=== PATIENT | female | born 1970 | race Caucasian/White ===

== ENCOUNTER → 2016-12-06 | Outpatient (CLI) | payer OTHER ==
[2016-12-09 08:06] LABS: F001-IGE EGG WHITE <0.10 kU/L (Class 0); F004-IGE WHEAT <0.10 kU/L (Class 0); F008-IGE CORN <0.10 kU/L (Class 0); F009-IGE RICE <0.10 kU/L (Class 0); F013-IGE PEANUT <0.10 kU/L (Class 0); F014-IGE SOYBEAN <0.10 kU/L (Class 0); F256-IGE WALNUT <0.10 kU/L (Class 0)
== END ==
LOC: M LAB 09:42
PROVIDERS: ATTEND Allergy & Immunology
DX: Z91.018 Allergy to other foods (principal)

== ENCOUNTER → 2016-12-14 | Outpatient (REF) | payer OTHER | LOC: M LAB REF 16:44 | PROVIDERS: ATTEND Specialist | DX: R87.610 Atypical squamous cells of undetermined significance on cytologic smear of cervix (ASC-US) (principal); R87.612 Low grade squamous intraepithelial lesion on cytologic smear of cervix (LGSIL) ==

== ENCOUNTER 2017-08-23 09:03 | Day surgery (SDC) | payer OTHER ==
[2017-08-23] MEDS: NS 1,000 ML IV (09:26)
[2017-08-23] MEDS ORDERED: fentaNYL 100 MCG/2 ML INJECTION (J3010) As Ordered (09:37)
[2017-08-23] MEDS ORDERED: PROPOFOL 500 MG/50 ML VIAL As Ordered (09:37)
[2017-08-23] MEDS ORDERED: LIDOCAINE 2% INJ 100 MG/5 ML SDV (FOR ANES.) As Ordered (10:18)
== END 2017-08-23 11:32 | disposition home or self-care (01) ==
LOC: M OPP 09:03
DX: K62.5 Hemorrhage of anus and rectum (principal); R19.4 Change in bowel habit; D12.5 Benign neoplasm of sigmoid colon; K64.0 First degree hemorrhoids; R13.10 Dysphagia, unspecified; R12 Heartburn; K29.70 Gastritis, unspecified, without bleeding; R11.2 Nausea with vomiting, unspecified; K21.9 Gastro-esophageal reflux disease without esophagitis; F41.9 Anxiety disorder, unspecified; F32.9 Major depressive disorder, single episode, unspecified; N83.202 Unspecified ovarian cyst, left side; Z88.0 Allergy status to penicillin; Z91.018 Allergy to other foods; Z88.8 Allergy status to other drugs, medicaments and biological substances; Z88.3 Allergy status to other anti-infective agents; Z91.040 Latex allergy status; Z91.013 Allergy to seafood; Z79.899 Other long term (current) drug therapy; Z80.3 Family history of malignant neoplasm of breast; Z80.41 Family history of malignant neoplasm of ovary
CPT/HCPCS: 45385

== ENCOUNTER → 2017-08-27 | Outpatient (REF) | payer OTHER ==
[2017-08-29 14:11] LABS: HPV HYBRID CAPTURE II Negative (Negative)
== END ==
LOC: M LAB REF 17:56
DX: N87.0 Mild cervical dysplasia (principal)

== ENCOUNTER → 2018-10-07 | Outpatient (REF) | payer OTHER ==
[~2018-10-07] MED LIST: FLON1SPR
[2018-10-10 14:22] LABS: HPV HYBRID CAPTURE II Negative (Negative)
== END ==
LOC: M LAB REF 17:48
PROVIDERS: ATTEND Specialist
DX: Z12.4 Encounter for screening for malignant neoplasm of cervix (principal); Z11.51 Encounter for screening for human papillomavirus (HPV)
CPT/HCPCS: 87624; G0123

== ENCOUNTER 2018-11-21 12:40 | Day surgery (SDC) | payer OTHER ==
[~2018-11-21] VITALS: Ht 157.5 cm; Wt 61.2 kg
[~2018-11-21 12:40] MED LIST changes: +BUSP10TA PO; +CETI10TA PO; +LR 1,000 ML IV ONE; +OMEP20TA PO; +PROZ20CA11 PO
[2018-11-21 13:09] LABS: URINE PREG TEST NEGATIVE (NEGATIVE)
[2018-11-21 13:10] LABS: HEMOGLOBIN 13.2 g/dl (12.0-15.5); MEAN CORPUSCULAR HEMOGLOBIN 29.6 pg (27.0-33.0); MEAN CORPUSCULAR VOLUME 89.7 fl (80.0-96.0); PLATELET COUNT, AUTOMATED 190 10^3/uL (150-450); RED BLOOD COUNT 4.46 10^6/uL (4.00-5.40); WHITE BLOOD COUNT 5.3 10^3/uL (4.0-10.0)
[2018-11-21] MEDS ORDERED: BUPIVACAINE HCL 0.25% 30 ML VIAL As Ordered ONE (13:28)
[2018-11-21] MEDS ORDERED: ADVITAB PO (13:50)
[2018-11-21] MEDS ORDERED: PX N0.05 (13:50)
[2018-11-21] MEDS ORDERED: LIDOCAINE 2% INJ 100 MG/5 ML SDV (FOR ANES.) As Ordered ONE (14:24)
[2018-11-21] MEDS ORDERED: ROCURONIUM BROMIDE 50 MG/5 ML VIAL As Ordered ONE (14:24)
[2018-11-21] MEDS ORDERED: PROPOFOL 200 MG/20 ML VIAL As Ordered ONE (14:24)
[2018-11-21] MEDS ORDERED: dexameTHASONE 4 MG/ML 1ML VIAL (J1100) As Ordered ONE (14:25)
[2018-11-21] MEDS ORDERED: ONDANSETRON 4MG/2ML VIAL (J2405) As Ordered ONE (14:25)
[2018-11-21] MEDS ORDERED: MIDAZOLAM INJ 2 MG/2 ML VIAL (J2250) As Ordered ONE (14:29)
[2018-11-21] MEDS ORDERED: fentaNYL 100 MCG/2 ML INJECTION (J3010) As Ordered ONE ×2 (14:29→17:23)
[2018-11-21] MEDS ORDERED: METOCLOPRAMIDE INJ 10MG/2ML VIAL (J2765) As Ordered ONE (15:56)
[2018-11-21] MEDS ORDERED: OXYC1TAB23 PO (15:58)
[2018-11-21] MEDS ORDERED: IBUP-1022 PO ×2 (15:59→18:59)
[2018-11-21] MEDS ORDERED: SUGAMMADEX SODIUM 500 MG/5 ML VIAL (BRIDION) As Ordered ONE (16:27)
[2018-11-21] MEDS ORDERED: KETOROLAC 60 MG/2 ML VIAL (J1885) As Ordered ONE (16:27)
[2018-11-21] MEDS ORDERED: fentaNYL 100 MCG/2 ML INJECTION (J3010) IV PRN (17:30)
[2018-11-21] MEDS ORDERED: ONDANSETRON 4MG/2ML VIAL (J2405) IV PRN (17:30)
[2018-11-21] MEDS ORDERED: LR 1,000 ML IV SCH ×2 (17:30)
[2018-11-21] MEDS ORDERED: PERCOCET 5MG/325MG TAB PO PRN ×2 (17:30)
[2018-11-21] MEDS ORDERED: PERCOCET PO (18:59)
[2018-11-21 19:00] VITALS: BP 123/76
--- NOTE | 2018-11-21 19:01 | IPNPDOC ---
Text Note Date of Service The patient was seen on 11/21/18. NOTE TC from Dr Fenton. Pt requested pharmacy change. New Rx [facility] Laboratory Tests 11/21/18 12:56 Red Blood Count 4.46, Mean Corpuscular Volume 89.7, Mean Corpuscular Hemoglobin 29.6, Mean Corpuscular Hemoglobin Concent 33.0, Red Cell Distribution Width 12.2 Vital Signs Date Time Temp Pulse Resp B/P (MAP) Pulse Ox O2 Delivery O2 Flow Rate FiO2 11/21/18 17:50 76 18 135/78 (97) 98 11/21/18 17:40 96.7 11/21/18 17:10 2 Shira Perez CNM Nov 21, 2018 19:00
--- NOTE | 2018-11-21 20:48 | RO ---
DATE OF PROCEDURE: 11/21/2018 PREPROCEDURE DIAGNOSIS: Left ovarian cyst. POSTPROCEDURE DIAGNOSIS: Left ovarian cyst. OPERATIVE PROCEDURE: Laparoscopic left salpingo-oophorectomy. SURGEON: Vishnu Fenton MD TOURIST CAMP ATTENDANT: ANESTHESIA: General endotracheal. ESTIMATED BLOOD LOSS: 20 mL URINE OUTPUT: 100 mL FINDINGS: 6 cm probable left ovarian cyst adenoma. Normal appearing right ovary and fallopian tube. Normal appearing uterus. DESCRIPTION OF PROCEDURE: The patient was taken to the operating room where general endotracheal anesthesia was induced. She was prepped and draped in a sterile fashion in the dorsal lithotomy position. A Ny catheter was placed. A Hulka uterine tenaculum was placed to use as a manipulator. Periumbilical incision was made with a scalpel. A Veress needle was placed through this incision while tenting up on the skin of the abdomen. Intraabdominal location of the Veress needle was assessed using a saline filled syringe. A pneumoperitoneum was created. The Veress needle was removed. A 11 mm trocar using Visiport was inserted through this incision. Two 5 mm suprapubic ports were placed under direct visualization. Using a grasping instrument and a LigaSure device the IP ligament on the left was coagulated and incised. Broad ligament attachments to the ovary were coagulated and incised. Utero-ovarian ligament and fallopian tube were coagulated and incised. The specimen was freed. The specimen was placed in an Endo Catch bag and removed through the umbilical port. Surgical area was irrigated and suctioned with good hemostasis noted. An incidental adhesion to the anterior abdominal wall of the omentum near the uterus was taken down with the use of the LigaSure. The pneumoperitoneum was released. All instruments were removed. The fascia of the umbilical port was closed with interrupted suture of #0 Vicryl. The skin was closed with #4-0 Monocryl subcuticular sutures. Sponge, needle and instrument counts were correct.
== END 2018-11-21 19:00 | disposition home or self-care (01) ==
LOC: M SDC 12:40
PROVIDERS: ATTEND Specialist
DX: D27.1 Benign neoplasm of left ovary (principal); K21.9 Gastro-esophageal reflux disease without esophagitis; F41.9 Anxiety disorder, unspecified; F32.9 Major depressive disorder, single episode, unspecified; Z87.891 Personal history of nicotine dependence; Z88.0 Allergy status to penicillin; Z91.040 Latex allergy status; Z91.013 Allergy to seafood; Z79.899 Other long term (current) drug therapy
CPT/HCPCS: 36415; 58661; 84703; 85027; 88305; J1100; J1885; J2250; J2405; J2765; J3010

== ENCOUNTER → 2021-02-19 | Outpatient (CLI) | payer OTHER ==
[~2021-02-19] MED LIST changes: +ADVITAB PO; +IBUP-1022 PO; -LR 1,000 ML IV ONE; +OMEP-358 PO; -OMEP20TA PO; +OXYC1TAB23 PO; +PERCOCET PO; +PX N0.05
--- NOTE | 2021-02-20 16:08 | SLEEPCENT ---
NOCTURNAL POLYSOMNOGRAPHY DATE: 02/19/2021 ORDERED BY: CHAPARRITA Scott Nocturnal polysomnography was performed for evaluation of sleep physiology in this patient with nonrestorative sleep and reported excessive somnolence. 8 hours and 45 minutes of data were reviewed. There were 368 minutes of sleep identified. Sleep latency was mildly prolonged at 31.5 minutes. REM latency also prolonged at 231 minutes. Sleep architecture was good. There were four REM cycles noted. Overall sleep efficiency was 70.8%. The electrocardiogram showed a sinus rhythm throughout with an average heart rate of 60 beats per minute; rate range 40 to 80. EEG showed normal waveforms for wake and sleep stages. There were no respiratory events identified of 10 seconds in duration or greater and no snoring was noted. Some activity was noted in the limb leads. One train of 30 events and a limb movement arousal index of 3.9. IMPRESSION: Normal nocturnal polysomnography.
== END ==
LOC: M SLEEP 20:00
PROVIDERS: ATTEND Nurse Practitioner Family
DX: G47.33 Obstructive sleep apnea (adult) (pediatric) (principal)

== ENCOUNTER 2021-06-29 16:38 | Emergency (ER) | payer OTHER ==
[~2021-06-29] VITALS: Ht 157.5 cm; Wt 65.1 kg
[2021-06-29] MEDS ORDERED: NS 1,000 ML IV ONE (16:40)
--- OUTSIDE RECORDS SUMMARY | 2021-06-29 16:41 | CCD | Continuity of Care Document ---
Author Author Angelika BOWLES M.D Organization Unknown Address [address] [place] [address] Phone [phone] Care Team Providers Care Printing Manager Name Role Phone Skinny James AUTM Problems Active Problems Provider Date Abdominal pain Umesh Bowles M.D. Onset: 04/25/20 21 Dysphagia Umesh Bowles M.D. Onset: 07/12/20 17 Social History Type Date Description Comments Sex Unknown ETOH Use Occasionally Tobacco Use Start: Unknown Patient has never smoked Allergies and adverse reactions Active Allergies Criticality Reaction | Severity Comments Date Seasonal Allergies Unable to assess criticality 07/12/2017 Food Allergies Unable to assess criticality 07/12/2017 Medications Active Medications SIG Qnty Indications Ordering Provide r Date Metamucil Smooth Texture 58.6% Pow flavia 1 tablespoon in 8 ozs of water everyday. 1unyoung Bowles M.D. 05/11/2021 Miralax 17GM/Scoop Powder mix one capful (17gm) in 8 ounces of water and drink once daily 527unyoung Bowles M.D. 04/25/2021 Hyoscyamine Sulfate 0.125mg Tablets Dispers 1 tab by mouth every 6 hours as needed 100tabs Omega Bowles M.D. 04/25/2021 Omeprazole 20mg Capsules Marito Cardozo,DO Rizatriptan Benzoate 10mg Tablets Unknown Cetirizine HCL 10mg Tablets Unknown Immunizations Description No Information Available Vital Signs Date Vital Result Comment 05/11/2021 2:48pm Height 62 inches 5'2" Weight 136.00 lb BP Systolic 124 mmHg BP Diastolic 73 mmHg Heart Rate 66 /min BMI (Body Mass Index) 24.9 kg/m2 Weight 61.690 kg Body Temperature 97.5 F 04/25/2021 2:37pm Height 62 inches 5'2" Weight 136.00 lb BP Systolic 128 mmHg BP Diastolic 80 mmHg Heart Rate 76 /min BMI (Body Mass Index) 24.9 kg/m2 Weight 61.690 kg Body Temperature 97.4 F Results Description No Information Available Procedures Date Code Description Status 05/11/2021 73517 Office/Outpatient Established Lo w MDM 20-29 Min Completed 04/25/2021 17642 Office/Outpatient Established Lo w MDM 20-29 Min Completed Medical Devices Description No Information Available Encounters Type Date Location Provider Dx Diagnosis Office Visit 05/11/2021 4:00p Main Office Umesh Bowles M.D. K 58.1 Irritable bowel syndrome with constipation Office Visit 04/25/2021 2:30p Main Office Umesh Bowles M.D. K 58.1 Irritable bowel syndrome with constipation Assessments Date Code Description Provider 05/11/2021 K58.1 Irritable bowel syndrome with co nstipation Umesh Bowles M.D. 04/25/2021 K58.1 Irritable bowel syndrome with co nstipation Umesh Bowles M.D. Plan of Treatment Future Appointment(s):* 06/22/2021 3:45 pm - Umesh Bowles M.D. at Main Office 05/11/2021 - Umesh Bowles M.D.* K58.1 Irritable bowel syndrome with constipation* Comments:* 50 yo wf who presented for a h/o abdominal pain, lower abdomen. Pt has irregular bowels. No c/o weight loss,or rectal bleeding. No family h/o colon cancer. No h/o chest pain, or sob. Last scope was in 2018. Plan:1. Stop Miralax2. Start Metamucil3. Office 6 weeks. Functional Status Description No Information Available Mental Status Description No Information Available Referrals Refer to Dr Reason for Referral Status Appt Date Umesh Bowles M.D. Scheduled [phone] [place] [address] [phone]
--- OUTSIDE RECORDS SUMMARY | 2021-06-29 16:41 | CCD | Continuity of Care Document ---
Author Author Angelika BOWLES M.D Organization Unknown Address [address] [place] [address] Phone [phone] Care Team Providers Care Christmas Bell Ringer Name Role Phone Skinny James AUTM Problems [...] Available Procedures Date Code Description Status 05/11/2021 39977 Office/Outpatient Established Lo w MDM 20-29 Min Completed 04/25/2021 17516 Office/Outpatient Established Lo w MDM 20-29 Min [...] Status Appt Date Umesh Bowles M.D. Scheduled [phone] [place] [address] [phone]
--- OUTSIDE RECORDS SUMMARY | 2021-06-29 16:41 | CCD | Continuity of Care Document ---
Author Author Angelika BOWLES M.D Organization Unknown Address [address] [place] [address] Phone [phone] Care Team Providers Care Connection Worker Name Role Phone Skinny James AUTM [phone] Problems Active Problems Provider Date Abdominal pain [...] Available Procedures Date Code Description Status 05/11/2021 11076 Office/Outpatient Established Lo w MDM 20-29 Min Completed 04/25/2021 84819 Office/Outpatient Established Lo w MDM 20-29 Min [...] Status Appt Date Umesh Bowles M.D. Scheduled [phone] [place] [address] [phone]
--- OUTSIDE RECORDS SUMMARY | 2021-06-29 16:42 | CCD | Continuity of Care Document ---
Author Author Angelika FRANCIS DO Organization Unknown Address [address] [place] [address], [address] [place] [address] Phone [phone] Care Team Providers Care Pre Press Operator Name Role Phone Natasha Pierre AUTM [phone] Marito Gay MD Unavailable Problems Active Problems Provider Date H/O: food allergy Vishnu Francis, DO Onset: 07/10/2011 Allergic rhinitis due to pollen Vishnu Francis, DO Onset: 07/10/2011 Allergic rhinitis Vishnu Francis, DO Onset: 07/10/2011 Chronic sinusitis Vishnu Francis, DO Onset: 07/10/2011 Pruritus of skin Vishnu Francis, DO Onset: 07/10/2011 Urticaria due to cold and heat Vishnu Francis, DO Onset: 07/10/2011 Contact dermatitis due to non-medicinal chemical Mercedez Francis, DO Onset: 10/04/2011 Malaise and fatigue Vishnu Francis, DO Onset: 11/10/2012 Chronic allergic conjunctivitis Emmy Connor MShirley, MARLYS Gonzalez Onset: 12/21/2013 Urticaria Emmy Connor MShirley, MONICA Onset: Periumbilical pain Emmy Connor M.S., MONICA Onset: Diarrhea Emmy Connor M.S., MONICA Onset: Social History Type Date Description Comments Sex Unknown Tobacco Use Start: Unknown End: Unknown Patient is a former smoker QUIT in 2008 Smoking Status Reviewed: 04/26/21 Patient is a former smoker QU IT in 2008 Allergies, Adverse Reactions, Alerts Active Allergies Criticality Reaction | Severity Comments Date Amoxicillin Unable to assess criticality Urticaria | Moderat e amoxi-clav 875-125 07/10/2011 Wellbutrin Unable to assess criticality 12/21/2013 Augmentin Unable to assess criticality 12/06/2016 Medications Active Medications SIG Qnty Indications Ordering Provide r Date Saline Mist [place] 0.65% Solution use as needed. J30.1 Vishnu Francis, DO 04/26/2021 Olopatadine HCL 0.1% Solution use one drop in each eye twice daily as needed. 15ml H10.45 Wero Francis, DO 04/26/2021 Cetirizine HCL 10mg Tablets 1 -2 tablet by mouth every day 180tabs J30.1 Vishnu Francis, DO 12/06/2016 L50.3 L50.2 Epipen 2-Humphrey 0.3mg/0 .3ML Solution Auto-Inject inject into thigh for allergic emergency 1units Z91.018 Vishnu Francis, DO 12/21/2013 L50.2 Rizatriptan Benzoate 10mg Tablets prn for migraines Unknown Ibuprofen 600mg Tablets Take 1 Tablet By Mouth Four Times Daily as Needed Unknown Rizatriptan Benzoate 10mg Tablets Dispers Marito Gay MD Medications Administered in Office Medication SIG Qnty Indications Ordering Provider Date Covid-19 vaccine, Unspecified Inj ection Unknown 10/19/2020 Covid-19 vaccine, Unspecified Inj ection Unknown 09/29/2020 Immunizations Description No Information Available Vital Signs Date Vital Result Comment 04/26/2021 8:54am Respiratory Rate 16 /min Heart Rate 67 /min BP Systolic 104 mmHg left arm BP Diastolic 68 mmHg left arm Height 61.5 inches 5'1.50" Weight 135.00 lb Body Temperature 97.0 F O2 % BldC Oximetry 98 % BMI (Body Mass Index) 25.1 kg/m2 09/15/2020 1:52pm Respiratory Rate 15 /min Heart Rate 66 /min BP Systolic 100 mmHg left arm BP Diastolic 76 mmHg left arm Height 61.5 inches 5'1.50" Weight 123.25 lb Body Temperature 98.3 F O2 % BldC Oximetry 98 % BMI (Body Mass Index) 22.9 kg/m2 Results Description No Information Available Procedures Date Code Description Status 04/26/2021 43816 Office Visit - Level 4 Completed Medical Devices Description No Information Available Encounters Description No Information Available Assessments Date Code Description Provider 04/26/2021 L50.2 Urticaria due to cold and heat C Vishnu gallardo, 04/26/2021 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 Vishnu Torres v, 04/26/2021 J30.1 Allergic rhinitis due to pollen Vishnu Francis, DO 04/26/2021 J30.89 Other allergic rhinitis Vishnu Francis, DO 04/26/2021 H10.45 Other chronic allergic conjuncti vitis Vishnu Francis, 04/26/2021 Z91.018 Allergy to other foods Vishnu Francis, 04/26/2021 T49.6x5A Adverse effect of ot orhinolaryngological drugs and preparations, initial encounter Vishnu Francis DO Plan of Treatment Future Appointment(s):* 07/26/2021 9:00 am - Vishnu Francis DO at [facility] 04/26/2021 - Vishnu Francis DO* L50.2 Urticaria due to cold and heat * 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 * Comments:* Resume use of medications as needed. to use nasal saline as needed. * Follow up:* recheck in 3 mos. * J30.89 Other allergic rhinitis * H10.45 Other chronic allergic conjunctivitis* New Medication:* Olopatadine HCL 0.1 % - use one drop in each eye twice daily as needed. * Z91.018 Allergy to other foods * T49.6x5A Adverse effect of otorhinolaryngological drugs and preparations, initial encounter* Comments:* To use nasal saline. Functional Status Description No Information Available Mental Status Description No Information Available Referrals Refer to Reason for Referral Status Appt Date Vishnu Francis DO New/Est Consult Created [address] [place] [phone] Vishnu Francis DO Office Follow Ups Created [address] [place] [phone] Vishnu Francis DO Allergen Immunotherapy Created [address] [place] [phone]
--- OUTSIDE RECORDS SUMMARY | 2021-06-29 16:42 | CCD ---
Continuity of Care Document (CCD) Created on: 05/02/2021 Chicho Angelika External Reference #: [id number] : [id number] Sex: Female Author Author Angelika BOWLES M.D Organization Unknown Address [address] [place] [address] Phone [phone] Care Team Providers Care Oncology Research Rn Name Role Phone Skinny James AUTM [phone] Problems Active Problems Provider Date Abdominal pain [...] SIG Qnty Indications Ordering Provide r Date Miralax 17GM/Scoop Powder mix one capful (17gm) in 8 ounces of water and drink once daily 527units Umesh Bowles M.D. 04/25/2021 Hyoscyamine Sulfate 0.125mg Tablets Dispers 1 tab by mouth every 6 hours as needed 100tabs Omega Bowles M.D. 04/25/2021 Omeprazole 20mg Capsules Marito Cardozo,DO Rizatriptan Benzoate 10mg Tablets Unknown Cetirizine HCL 10mg Tablets Unknown Immunizations Description No Information Available Vital Signs Date Vital Result Comment 04/25/2021 2:37pm Height 62 inches 5'2" Weight 136.00 lb BP Systolic 128 mmHg BP Diastolic 80 mmHg Heart Rate 76 /min BMI (Body Mass Index) 24.9 kg/m2 Weight 61.690 kg Body Temperature 97.4 F 01/14/2020 3:39pm Height 62 inches 5'2" Temp 98. 4 Weight 139.00 lb BP Systolic 116 mmHg BP Diastolic 74 mmHg Heart Rate 90 /min BMI (Body Mass Index) 25.4 kg/m2 Weight 63.050 kg Results Description No Information Available Procedures Date Code Description Status 04/25/2021 78395 Office/Outpatient Established Lo w MDM 20-29 Min Completed Medical Devices Description No Information Available Encounters Type Date Location Provider Dx Diagnosis Office Visit 04/25/2021 2:30p Main Office Umesh Bowles M.D. K 58.1 Irritable bowel syndrome with constipation Assessments Date Code Description Provider 04/25/2021 K58.1 Irritable bowel syndrome with co nstipation Umesh Bowles M.D. Plan of Treatment Future Appointment(s):* 05/11/2021 4:00 pm - Umesh Bowles M.D. at Main Office 04/25/2021 - Umesh Bowles M.D.* K58.1 Irritable bowel syndrome with constipation* Comments:* 50 yo wf who presents for a h/o abdominal pain, lower abdomen. Pt has irregular bowels. No c/o weight loss,or rectal bleeding. No family h/o colon cancer. No h/o chest pain, or sob. Last scope was in 2018. Plan:1. High fiber diet.2. Miralax daily.3. Office as set up. Functional Status Description No Information Available Mental Status Description No Information Available Referrals Refer to Reason for Referral Status Appt Date Umesh Bowles M.D. Scheduled [address] [place] [address] [phone]
--- OUTSIDE RECORDS SUMMARY | 2021-06-29 16:42 | CCD | Continuity of Care Document ---
Author Author Angelika FRANCIS DO Organization Unknown Address [address] [place] [address], [address] [place] [address] Phone [phone] Care Team Providers Care Nuclear Waste Process Operator Name Role Phone Natasha Pierre AUTM [phone] Marito Gay MD Unavailable Problems Active Problems [...] Indications Ordering Provide r Date Saline Mist [place] 0.65% Solution use as needed. 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 * [...] Date Vishnu Francis DO New/Est Consult Created [address] [place] [phone] Vishnu Francis DO Office Follow Ups Created [address] [place] [phone] Vishnu Francis DO Allergen Immunotherapy Created [address] [place] [phone]
--- OUTSIDE RECORDS SUMMARY | 2021-06-29 16:42 | CCD ---
Author Author [facility] Organization [facility] Address Unknown Phone Unavailable Care Team Providers Care Header Operator Name Role Phone Mary Bowles MD Unavailable Unavailable Mary Bowles MD Unavailable Unavailable Mary Bowles MD Unavailable Unavailable Mary Bowles MD Unavailable Unavailable Mary Bowles MD Unavailable Unavailable Mary Bowles MD Unavailable Unavailable Mary Bowles MD Unavailable Unavailable Mary Bowles MD Unavailable Unavailable Mary Bowles MD Unavailable Unavailable Mary Bowles MD Unavailable Unavailable Mary Bowles MD Unavailable Unavailable Mary Bowles MD Unavailable Unavailable Mary Bowles MD Unavailable Unavailable Mary Bowles MD Unavailable Unavailable Mary Bowles MD Unavailable Unavailable Mary Bowles MD Unavailable Unavailable Mary Bowles MD Unavailable Unavailable Mary Bowles MD Unavailable Unavailable Mary Bowles MD Unavailable Unavailable Mary Bowles MD Unavailable Unavailable Mary Bowles MD Unavailable Unavailable Mary Bowles MD Unavailable Unavailable Mayr Bowles MD Unavailable Unavailable Mary Bowles MD Unavailable Unavailable aMry Bowles MD Unavailable Unavailable Mary Bowles MD Unavailable Unavailable Mary Bowles MD Unavailable Unavailable Mary Bowles MD Unavailable Unavailable Wilbur, S Umesh MD Unavailable Unavailable Wilbur, S Umesh MD Unavailable Unavailable Wilbur, S Umesh MD Unavailable Unavailable Wilbur, S Umesh MD Unavailable Unavailable Wilbur, S Umesh MD Unavailable Unavailable Wilbur, S Umesh MD Unavailable Unavailable Wilbur, S Umesh MD Unavailable Unavailable Wilbur, S Umesh MD Unavailable Unavailable Wilbur, S Umesh MD Unavailable Unavailable Wilbur, S Umesh MD Unavailable Unavailable Wilbur, S Umesh MD Unavailable Unavailable Wilbur, S Umesh MD Unavailable Unavailable Wilbur, S Umesh MD Unavailable Unavailable Wilbur, S Umesh MD Unavailable Unavailable Wilbur, S Umesh MD Unavailable Unavailable Wilbur, S Umesh MD Unavailable Unavailable Wilbur, S Umesh MD Unavailable Unavailable Wilbur, S Umesh MD Unavailable Unavailable Wilbur, S Umesh MD Unavailable Unavailable Wilbur, S Umesh MD Unavailable Unavailable Wilbur, S Umesh MD Unavailable Unavailable Wilbur, S Umesh MD Unavailable Unavailable Wilbur, S Umesh MD Unavailable Unavailable SMYTH, P REMEDIOS MD Unavailable Unavailable SMYTH, P REMEDIOS MD Unavailable Unavailable SMYTH, P REMEDIOS MD Unavailable Unavailable SMYTH, P REMEDIOS MD Unavailable Unavailable SMYTH, P REMEDIOS MD Unavailable Unavailable SMYTH, P REMEDIOS MD Unavailable Unavailable SMYTH, P REMEDIOS MD Unavailable Unavailable SMYTH, P REMEDIOS MD Unavailable Unavailable SMYTH, P REMEDIOS MD Unavailable Unavailable SMYTH, P REMEDIOS MD Unavailable Unavailable SMYTH, P REMEDIOS MD Unavailable Unavailable SMYTH, P REMEDIOS MD Unavailable Unavailable SMYTH, P REMEDIOS MD Unavailable Unavailable SMYTH, P REMEDIOS MD Unavailable Unavailable SMYTH, P REMEDIOS MD Unavailable Unavailable SMYTH, P REMEDIOS MD Unavailable Unavailable SMYTH, P REMEDIOS MD Unavailable Unavailable SMYTH, P REMEDIOS MD Unavailable Unavailable SMYTH, P REMEDIOS MD Unavailable Unavailable SMYTH, P REMEDIOS MD Unavailable Unavailable SMYTH, P REMEDIOS MD Unavailable Unavailable SMYTH, P REMEDIOS MD Unavailable Unavailable SMYTH, P REMEDIOS MD Unavailable Unavailable SMYTH, P REMEDIOS MD Unavailable Unavailable SMYTH, P REMEDIOS MD Unavailable Unavailable SMYTH, P REMEDIOS MD Unavailable Unavailable SMYTH, P REMEDIOS MD Unavailable Unavailable SMYTH, P REMEDIOS MD Unavailable Unavailable SMYTH, P REMEDIOS MD Unavailable Unavailable SMYTH, P REMEDIOS MD Unavailable Unavailable SMYTH, P REMEDIOS MD Unavailable Unavailable SMYTH, P REMEDIOS MD Unavailable Unavailable SMYTH, P REMEDIOS MD Unavailable Unavailable SMYTH, P REMEDIOS MD Unavailable Unavailable SMYTH, P REMEDIOS MD Unavailable Unavailable SMYTH, P REMEDIOS MD Unavailable Unavailable SMYTH, P REMEDIOS MD Unavailable Unavailable SMYTH, P REMEDIOS MD Unavailable Unavailable SMYTH, P REMEDIOS MD Unavailable Unavailable SMYTH, P REMEDIOS MD Unavailable Unavailable SMYTH, P REMEDIOS MD Unavailable Unavailable SMYTH, P REMEDIOS MD Unavailable Unavailable SMYTH, P REMEDIOS MD Unavailable Unavailable DONNELL SHAHE JW HEATER TENDER-C Unavailable Unavailable PABLO, OLESYA JW HEATER TENDER-C Unavailable Unavailable PABLO, OLESYA JW HEATER TENDER-C Unavailable Unavailable PABLO, OLESYA JW HEATER TENDER-C Unavailable Unavailable PABLO, OLESYA JW HEATER TENDER-C Unavailable Unavailable PABLO, OLESYA JW HEATER TENDER-C Unavailable Unavailable PABLO, OLESYA JW HEATER TENDER-C Unavailable Unavailable PABLO, OLESYA JW HEATER TENDER-C Unavailable Unavailable PABLO, OLESYA JW HEATER TENDER-C Unavailable Unavailable PABLO, OLESYA JW HEATER TENDER-C Unavailable Unavailable PABLO, OLESYA JW HEATER TENDER-C Unavailable Unavailable PABLO, OLESYA JW HEATER TENDER-C Unavailable Unavailable PABLO, OLESYA JW HEATER TENDER-C Unavailable Unavailable PABLO, OLESYA JW HEATER TENDER-C Unavailable Unavailable PABLO, OLESYA JW HEATER TENDER-C Unavailable Unavailable PABLO, OLESYA JW HEATER TENDER-C Unavailable Unavailable PABLO, OLESYA JW HEATER TENDER-C Unavailable Unavailable Mercedez WILLIS MD Unavailable Unavailable Mercedez WILLIS MD Unavailable Unavailable Mercedez WILLIS MD Unavailable Unavailable Mercedez WILLIS MD Unavailable Unavailable Mercedez WILLIS MD Unavailable Unavailable Mercedez WILLIS MD Unavailable Unavailable Mercedez WILLIS MD Unavailable Unavailable Mercedez WILLIS MD Unavailable Unavailable Mercedez WILLIS MD Unavailable Unavailable Mercedez WILLIS MD Unavailable Unavailable Mercedez WILLIS MD Unavailable Unavailable Mercedez WILLIS MD Unavailable Unavailable Mercedez WILLIS MD Unavailable Unavailable Mercedez WILLIS MD Unavailable Unavailable Mercedez WILLIS MD Unavailable Unavailable Mercedez WILLIS MD Unavailable Unavailable Mercedez WILLIS MD Unavailable Unavailable Mercedez WILLIS MD Unavailable Unavailable Mercedez WILLIS MD Unavailable Unavailable Mercedez WILLIS MD Unavailable Unavailable Mercedez WILLIS MD Unavailable Unavailable Mercedez WILLIS MD Unavailable Unavailable Mercedez WILLIS MD Unavailable Unavailable Mercedez WILLIS MD Unavailable Unavailable Mercedez WILLIS MD Unavailable Unavailable Mercedez WILLIS MD Unavailable Unavailable Mercedez WILLIS MD Unavailable Unavailable Mercedez WILLIS MD Unavailable Unavailable Mercedez WILLIS MD Unavailable Unavailable Mercedez WILLIS MD Unavailable Unavailable Mercedez WILLIS MD Unavailable Unavailable Mercedez WILLIS MD Unavailable Unavailable Mercedez WILLIS MD Unavailable Unavailable Mercedez WILLIS MD Unavailable Unavailable Mercedez WILLIS MD Unavailable Unavailable Mercedez WILLIS MD Unavailable Unavailable Mercedez WILLIS MD Unavailable Unavailable Mercedez WILLIS MD Unavailable Unavailable Mercedez WILLIS MD Unavailable Unavailable Mercedez WILLIS MD Unavailable Unavailable Mercedez ALEJANDRA MD Unavailable Unavailable Mercedez ALEJANDRA MD Unavailable Unavailable Mercedez ALEJANDRA MD Unavailable Unavailable Mercedez ALEJANDRA MD Unavailable Unavailable Mercedez ALEJANDRA MD Unavailable Unavailable Mercedez ALEJANDRA MD Unavailable Unavailable Mercedez ALEJANDRA MD Unavailable Unavailable Mercedez ALEJANDRA MD Unavailable Unavailable Mercedez ALEJANDRA MD Unavailable Unavailable Mercedez ALEJANDRA MD Unavailable Unavailable Mercedez ALEJANDRA MD Unavailable Unavailable Mercedez ALEJANDRA MD Unavailable Unavailable Mercedez ALEJANDRA MD Unavailable Unavailable Mercedez ALEJANDRA MD Unavailable Unavailable Mercedez ALEJANDRA MD Unavailable Unavailable Mercedez ALEJANDRA MD Unavailable Unavailable Mercedez ALEJANDRA MD Unavailable Unavailable Mercedez ALEJANDRA MD Unavailable Unavailable Mercedez ALEJANDRA MD Unavailable Unavailable Mercedez ALEJANDRA MD Unavailable Unavailable Mercedez ALEJANDRA MD Unavailable Unavailable Mercedez ALEJANDRA MD Unavailable Unavailable Mercedez ALEJANDRA MD Unavailable Unavailable Mercedez ALEJANDRA MD Unavailable Unavailable Mercedez ALEJANDRA MD Unavailable Unavailable Mercedez ALEJANDRA MD Unavailable Unavailable Mercedez ALEJANDRA MD Unavailable Unavailable Mercedez ALEJANDRA MD Unavailable Unavailable Mercedez ALEJANDRA MD Unavailable Unavailable Mercedez ALEJANDRA MD Unavailable Unavailable Mercedez ALEJANDRA MD Unavailable Unavailable Mercedez ALEJANDRA MD Unavailable Unavailable Mercedez ALEJANDRA MD Unavailable Unavailable Mercedez ALEJANDRA MD Unavailable Unavailable Mercedez ALEJANDRA MD Unavailable Unavailable Mercedez ALEJANDRA MD Unavailable Unavailable Mercedez ALEJANDRA MD Unavailable Unavailable Mercedez ALEJANDRA MD Unavailable Unavailable Mercedez ALEJANDRA MD Unavailable Unavailable Mercedez ALEJANDRA MD Unavailable Unavailable Mercedez ALEJANDRA MD Unavailable Unavailable Mercedez ALEJANDRA MD Unavailable Unavailable Mercedez ALEJANDRA MD Unavailable Unavailable Mercedez ALEJANDRA MD Unavailable Unavailable Mercedez ALEJANDRA MD Unavailable Unavailable Mercedez ALEJANDRA MD Unavailable Unavailable Mercedez ALEJANDRA MD Unavailable Unavailable Mercedez ALEJANDRA MD Unavailable Unavailable Mercedez ALEJANDRA MD Unavailable Unavailable Mercedez ALEJANDRA MD Unavailable Unavailable Mercedez ALEJANDRA MD Unavailable Unavailable Mercedez ALEJANDRA MD Unavailable Unavailable Mercedez ALEJANDRA MD Unavailable Unavailable Mercedez ALEJANDRA MD Unavailable Unavailable Mercedez ALEJANDRA MD Unavailable Unavailable Mercedez ALEJANDRA MD Unavailable Unavailable Mercedez ALEJANDRA MD Unavailable Unavailable Mercedez ALEJANDRA MD Unavailable Unavailable Mercedez ALEJANDRA MD Unavailable Unavailable Mercedez ALEJANDRA MD Unavailable Unavailable Mercedez ALEJANDRA MD Unavailable Unavailable Mercedez ALEJANDRA MD Unavailable Unavailable Mercedez ALEJANDRA MD Unavailable Unavailable Mercedez ALEJANDRA MD Unavailable Unavailable Mercedez ALEJANDRA MD Unavailable Unavailable Mercedez ALEJANDRA MD Unavailable Unavailable Christos, Alfredo Unavailable [phone] Christos, Alfredo Unavailable [phone] Christos, Alfredo Unavailable [phone] Christos, Alfredo Unavailable [phone] Christos, Alfredo Unavailable [phone] Christos, Alfredo Unavailable [phone] Christos, Alfredo Unavailable [phone] Christos, Alfredo Unavailable [phone] Christos, Alfredo Unavailable [phone] Christos, Alfredo Unavailable [phone] Christos, Alfredo Unavailable [phone] Christos, Alfredo Unavailable [phone] Gilberto DIEHL MD Unavailable +011 Gilberto DIEHL MD Unavailable +011 Gilberto DIEHL MD Unavailable +011 Gilberto DIEHL MD Unavailable +011 Gilberto DIEHL MD Unavailable +011 Gilberto DIEHL MD Unavailable +011 Gilberto DIEHL MD Unavailable +011 Gilberto DIEHL MD Unavailable +011 Gilberto DIEHL MD Unavailable +011 Gilberto DIEHL MD Unavailable +011 Gilberto DIEHL MD Unavailable +011 Gilberto DIEHL MD Unavailable +011 Gilberto DIEHL MD Unavailable +011 Gilberto DIEHL MD Unavailable +011 Gilberto DIEHL MD Unavailable +011 DICKSON JOSÉ Unavailable Unavailable Re-disclosure Warning The records that you are about to access may contain information from federally-assisted alcohol or drug abuse programs. If such information is present, then the following federally mandated warning applies: This information has been disclosed to you from records protected by federal confidentiality rules (42 CFR part 2). The federal rules prohibit you from making any further disclosure of this information unless further disclosure is expressly permitted by the written consent of the person to whom it pertains or as otherwise permitted by 42 CFR part 2. A general authorization for the release of medical or other information is NOT sufficient for this purpose. The Federal rules restrict any use of the information to criminally investigate or prosecute any alcohol or drug abuse patient.The records that you are about to access may contain highly sensitive health information, the redisclosure of which is protected by Article 27-F of the [facility] Public Health law. If you continue you may have access to information: Regarding HIV / AIDS; Provided by facilities licensed or operated by the [facility] Office of Mental Health; or Provided by the [facility] Office for People With Developmental Disabilities. If such information is present, then the following [facility] mandated warning applies: This information has been disclosed to you from confidential records which are protected by state law. State law prohibits you from making any further disclosure of this information without the specific written consent of the person to whom it pertains, or as otherwise permitted by law. Any unauthorized further disclosure in violation of state law may result in a fine or alf sentence or both. A general authorization for the release of medical or other information is NOT sufficient authorization for further disc losure. Family History Family Member Name Family Member Gender Family Member Status Date o f Status Description Data Source(s) Unknown Unknown Problem [facility] ([facility], ) Unknown Female Problem [facility] ([facility]) Unknown Male Problem [facility] ([facility]) Encounters Encounter Providers Location Date Indications Data Source(s ) Outpatient Attender: Umesh Bowles MD Main Office 05/11/2021 04:00:00 PM EDT [facility] ([facility]) Outpatient Attender: Umesh Bowles MD Main Office 04/25/2021 02:30:00 PM EDT [facility] ([facility]) Outpatient Attender: JW SHAH HEATER TENDER-C Neema/Hayward/Khalif/R eindl 03/17/2021 03:15:00 PM EDT [facility] ([facility], ) Outpatient Attender: JW SHAH HEATER TENDER-C Neema/Hayward/Khalif/R eindl 02/01/2021 08:15:00 AM EDT [facility] ([facility]) Outpatient Attender: Alfredo SherReferrer: OTF Vega 12/21/2020 08:00:00 AM [facility] Outpatient Attender: OTF Cedeño reena: AUGUSTUS DIEHL MDReferrer: OTF WILLIS MD 12/14/2020 01:00:00 PM T - 12/14/2020 01:00:00 PM [facility] Outpatient 05/30/2020 12:00:00 AM [facility] Outpatient 05/27/2020 12:00:00 AM [facility] Outpatient 05/12/2020 12:00:00 AM [facility] Outpatient 05/10/2020 12:00:00 AM [facility] Outpatient Attender: SAUL ALEJANDRA MDReferrer: OTF FOX MD 03/14/2020 04:41:00 PM EDT - 03/14/2020 04:41:00 PM [facility] Outpatient Attender: AUGUSTUS Lei tender: AUGUSTUS JOSÉReferrer: OTF WILLIS MD 12/11/2019 02:30:00 PM T - 12/11/2019 02:30:00 PM [facility] Outpatient Attender: OTF KIRKeferrer: OTF WILLIS MD 10/17/2018 09:00:00 AM EST - 10/17/2018 09:00:00 AM [facility] Outpatient Attender: OTF WILLIS MD 2018 02:00:00 PM EST - 10/10/2018 02:00:00 PM [facility] Outpatient Attender: REMEDIOS SMYTH MDReferrer: OTF WILLIS MD 10/01/2018 01:00:00 PM EST - 10/01/2018 01:00:00 PM [facility] Medications Medication Brand Name Start Date Product Form Dose Route Admi nistrative Instructions Pharmacy Instructions Status Indications Reaction Description Data Source(s) Psyllium 14.2 MG/ML Oral Suspension [Metamucil] Metamucil Sm ooth Texture 05/11/2021 12:00:00 AM EDT active [facility] ([facility]) Sodium Chloride 0.111 MEQ/ML Nasal Solution Saline Mist Spra y 04/26/2021 12:00:00 AM EDT active M [facility] ([facility]) olopatadine 1 MG/ML Ophthalmic Solution Olopatadine HCL 04/26/2021 12:00:00 AM EDT active [facility] ([facility]) Hyoscyamine Sulfate 0.125 MG Disintegrating Oral Tablet Hyos cyamine Sulfate 04/25/2021 12:00:00 AM EDT ORAL active [facility] ([facility]) POLYETHYLENE GLYCOL 3350 142 MG/ML Oral Solution [Miralax] M iralax 04/25/2021 12:00:00 AM EDT active M [facility] ([facility]) 0.12 % 03/10/2021 12:00:00 AM EDT mouthwash 473 RINSE WITH ONE CAPFUL THREE TIMES A DAY BEGINNING TOMORROW RINSE WITH ONE CAPFUL THREE TIMES A DAY BEGINNING TOMORROW SOLD: 03/11/2021 [facility] Covid-19 vaccine, Unspecified 10/19/2020 12:00:00 AM EST completed [facility] ([facility]) Medication administered onsite Covid-19 vaccine, Unspecified 09/29/2020 12:00:00 AM EST completed [facility] ([facility]) Medication administered onsite Insurance Providers Payer name Policy type / Coverage type Policy ID Covered libertarian ID Covered libertarian's relationship to haque Policy Haque Plan Information [facility] [id number] Spouse [id number] [place] [employer] [id number] HU2 [id number] [place] [id number] SPO [id number] [place] (2018) Commercial [id number] Family Dependent [id number] [place] [employer] [id number] SPO [id number] [place] HU[employer] [id number] HU2 [id number] [place] [id number] SPO [id number] U [id number] Self [id number] U [id number] Self [id number] U [id number] Self [id number] FOR LIFE U [id number] Self [id number] PGBA [place] [id number] HU2 [id number] Region 1 Prime Commercial [id number] Family Dependent [id number] / Commercial [id number] Family Dependent [id number] [facility] Health Maintenance Organization (O) 4 [id number] Family Dependent [id number] / Commercial [id number] Family Dependent [id number] [facility] Health Maintenance Organization (O) [id number] Family Dependent PGBA [place] P [id number] S [id number] [facility] O [id number] U [id number] [facility] [facility] [place] [id number] SPO [id number] N REGIONAL CLAIMS [facility] [id number] 01 [id number] [place] WPS [id number] SPO [id number] [facility] SERVICES [id number] SPO [id number] [facility] O [id number] P [id number] [facility] Health Maintenance Organization ([facility]) [id number] Family Dependent [id number] [facility] Health Maintenance Organization ([facility]) 4 [id number] Family Dependent [id number] [facility] Health Maintenance Organization ([facility]) 4 [id number] Family Dependent [id number] HUMANA [id number] SPO [id number] / Commercial [id number] Family Dependent [id number] [facility] Maintenance [facility] ([facility]) 4 [id number] Family Dependent [id number] [facility] [id number] HU2 [id number] Problems, Conditions, and Diagnoses Code Display Name Description Problem Type Effective Dates Data Source(s) K59.00 Constipation, unspecified CONSTIPATION, UNSPECIFIED Di agnosis 12/21/2020 08:00:00 AM [facility] R10.9 Unspecified abdominal pain UNSPECIFIED ABDOMINAL PAIN Diagnosis 12/21/2020 08:00:00 AM [facility] Z12.31 Encounter for screening mammogram for ma lignant neoplasm of breast ENCNTR SCREEN MAMMOGRAM FOR MALIGNANT NEOPLASM OF BREAST Diagnosis 12/2020 01:00:00 PM [facility] [id number] Abdominal pain Abdominal pain Problem 04/25/2021 12:00: 00 AM [facility] ([facility]) Surgeries/Procedures Procedure Description Date Indications Data Source(s) OFFICE OUTPATIENT VISIT 15 MINUTES 05/11/2021 12:00:00 AM EDT [facility] ([facility]) OFFICE OUTPATIENT VISIT 25 MINUTES 04/26/2021 12:00:00 AM EDT [facility] ([facility]) OFFICE OUTPATIENT VISIT 15 MINUTES 04/25/2021 12:00:00 AM EDT [facility] ([facility]) OFFICE OUTPATIENT VISIT 15 MINUTES 03/17/2021 12:00:00 AM EDT [facility] ([facility], ) OFFICE OUTPATIENT NEW 30 MINUTES 02/01/2021 12:00:00 A M EDT [facility] ([facility], ) Results ID Date Data Source [id number] 12/21/2020 08:32:00 AM EDT [facility] DATE OF EXAMINATION: 12/21/2020 7:56 EDT ABD/PEL NO CONTRAST HISTORY: Abdominal pain TECHNIQUE: This CT exam was performed using the following dose reduction techniques:automated exposure control, adjustment of mA and/or kV according to thepatient's size, and use of iterative reconstruction technique. Standard contiguous axial spiral imaging was obtained from the dome of thediaphragms through the symphysis pubis without oral contrast and withoutintravenous contrast administration and with coronal reformatting. FINDINGS: Lower thorax: Unremarkable ABDOMEN: Liver: UnremarkableGallbladder and bile ducts: UnremarkablePancreas: UnremarkableSpleen: UnremarkableAdrenals: UnremarkableKidneys and ureters: Unremarkable unenhancedStomach and bowel: Large amount of stool throughout the colon. There is somediffuse thickening of the sigmoid colon likely peristaltic in nature. Also seenis an area of possible thickening in the distal ascending colon. If the patienthas not had screening colonoscopy one would be recommendedAppendix: No evidence for appendicitis PELVIS: Bladder: Nondistended and unopacified therefore unable to evaluateReproductive: Grossly unremarkable There is no free fluid or lymphadenopathy IMPRESSION: Moderate amount of stool throughout the colon with areas of mural thickeningwhich are likely related to peristaltic wave. However, if the patient has nothad screening colonoscopy or if there is any clinical concern for underlyingneoplasm colonoscopy would be recommended. Electronically signed in [id number] by: Kareem Noyola M.D. 12/21/2020 8:26 EDT Name Value Range Interpretation Code Description Data Maggi rce(s) Supporting Document(s) ID Date Data Source [id number] 12/15/2020 10:00:00 AM EDT [facility] DATE OF EXAMINATION: 12/14/2020 12:50 EDT MAMMO SCREEN BILAT WITH CAD HISTORY: Screening Based on the personal and family history information your patient supplied atthe time of imaging, her lifetime risk of breast cancer estimated date by theTyrer-Cuzick model is 26%. If anything changes in the personal and/or familyhistory this percentage could increase or decrease. Currently, NCCN and ACSrecommended adjunctive breast MRI screening starting at age 30 for women with a> 20-25% lifetime risk of developing breast cancer. Comparison is made to prior study dated 12/11/2019. 2-D bilateral digital mammogram in the CC and MLO planes were performed withsupplemental 3-D tomosynthesis of both breasts. The images were analyzed through the latest version of the [employer] computer aided diagnosis system. The patient states that her last clinical breast examination was several yearsago. Craniocaudal and oblique lateral views of the breasts were obtained. (B) Thereare scattered areas of fibroglandular density. . There is no dominant mass,suspicious clustered calcification, or architectural distortion. IMPRESSION: Overall no significant interval change. Given your patient's high risk score of26% high-risk clinical assessment is encouraged. Final assessment of breast composition BIRAD classification (B) There arescattered areas of fibroglandular density. BIRAD 2 - Benign Findings, Routine Yearly Mammographic Follow-up recommended. 10-15% of cancers are not identified by mammography. This usually occurs whenthe mass is of the same radiographic density as the surrounding breast tissue,emphasizing the importance of breast self examination (BSE) and physicalexamination. A normal mammogram should not delay biopsy if a suspicious mass orabnormal findings are present upon physical examination. Electronically signed in [id number] by: Kareem Noyola M.D. 12/15/2020 9:54 EDT Name Value Range Interpretation Code Description Data Maggi rce(s) Supporting Document(s) Procedure Social History Code Duration Value Status Description Data Source(s ) Smoking 04/26/2021 12:00:00 AM EDT Patient is a former smoker completed Patient is a former smoker [facility] Smoking 03/17/2021 12:00:00 AM EDT Patient is a former smoker completed Patient is a former smoker [facility] ([facility], ) Vital Signs ID Date Data Source UNK Name Value Range Interpretation Code Description Data Source(s) Body height 62 [in_i] 62 [in_i] [facility] 5'2" Body weight 136.00 [lb_av] 136.00 [lb_av] [facility] ([facility]) Diastolic blood pressure 73 mm[Hg] 73 mm[Hg] [facility] ([facility]) Heart rate 66 /min 66 /min [facility] ([facility]) Body mass index (BMI) [Ratio] 24.9 kg/m2 24.9 k g/m2 [facility] ([facility]) Body weight 61.690 kg 61.690 kg [facility]) Body temperature 97.5 [degF] 97.5 [degF] [facility] ([facility]) Systolic blood pressure 124 mm[Hg] 124 mm[Hg] [facility] ([facility]) Systolic blood pressure 104 mm[Hg] 104 mm[Hg] [facility] ([facility]) left arm Diastolic blood pressure 68 mm[Hg] 68 mm[Hg] [facility] ([facility]) left arm Body height 61.5 [in_i] 61.5 [in_i] [facility] ([facility]) 5'1.50" Body weight 135.00 [lb_av] 135.00 [lb_av] [facility] ([facility]) Respiratory rate 16 /min 16 /min [facility] ( [facility]) Body temperature 97.0 [degF] 97.0 [degF] [facility] ([facility]) Heart rate 67 /min 67 /min [facility] Body mass index (BMI) [Ratio] 25.1 kg/m2 25.1 k g/m2 [facility] ([facility]) Oxygen saturation in Arterial blood by Pulse oximetry 98 % 98 % [facility] ([facility]) Body height 62 [in_i] 62 [in_i] [facility] 5'2" Body weight 136.00 [lb_av] 136.00 [lb_av] [facility] ([facility]) Systolic blood pressure 128 mm[Hg] 128 mm[Hg] [facility] ([facility]) Heart rate 76 /min 76 /min [facility] ([facility]) Body mass index (BMI) [Ratio] 24.9 kg/m2 24.9 k g/m2 [facility] ([facility]) Body weight 61.690 kg 61.690 kg [facility]) Body temperature 97.4 [degF] 97.4 [degF] [facility] ([facility]) Diastolic blood pressure 80 mm[Hg] 80 mm[Hg] [facility] ([facility]) Systolic blood pressure 140 mm[Hg] 140 mm[Hg] [facility] Diastolic blood pressure 80 mm[Hg] 80 mm[Hg] [facility] ([facility]) Heart rate 68 /min 68 /min [facility] ([facility]) Oxygen saturation in Arterial blood by Pulse oximetry 98 % 98 % [facility] ([facility]) Body height 62 [in_i] 62 [in_i] [facility] ([facility]) 5'2" Body weight 135.25 [lb_av] 135.25 [lb_av] [facility] ([facility]) Body mass index (BMI) [Ratio] 24.7 kg/m2 24.7 k g/m2 [facility] ([facility]) [place] body weight 110 [lb_av] 110 [lb_av] [facility] ([facility]) Body weight 61.349 kg 61.349 kg [facility] ([facility]) Body surface area Derived from formula 1.62 m2 1.62 m2 [facility] ([facility]) Oxygen saturation in Arterial blood by Pulse oximetry 99 % 99 % [facility] ([facility]) Body height 62 [in_i] 62 [in_i] [facility] ([facility]) 5'2" Body weight 132.38 [lb_av] 132.38 [lb_av] [facility] ([facility]) Body mass index (BMI) [Ratio] 24.2 kg/m2 24.2 k g/m2 [facility] ([facility]) [place] body weight 110 [lb_av] 110 [lb_av] [facility] ([facility]) Body weight 60.045 kg 60.045 kg [facility] ([facility]) Body surface area Derived from formula 1.60 m2 1.60 m2 [facility] ([facility]) Systolic blood pressure 120 mm[Hg] 120 mm[Hg] [facility] ([facility]) Diastolic blood pressure 80 mm[Hg] 80 mm[Hg] [facility] Heart rate 67 /min 67 /min [facility] ([facility]) Oxygen saturation in Arterial blood by Pulse oximetry 99 % 99 % [facility] ([facility]) Body height 62 [in_i] 62 [in_i] [facility] ([facility]) 5'2" Body weight 132.38 [lb_av] 132.38 [lb_av] [facility] ([facility]) [place] body weight 110 [lb_av] 110 [lb_av] [facility] ([facility]) Body weight 60.045 kg 60.045 kg [facility] ([facility]) Body surface area Derived from formula 1.60 m2 1.60 m2 [facility] ([facility]) Body mass index (BMI) [Ratio] 24.2 kg/m2 24.2 k g/m2 [facility] ([facility]) Systolic blood pressure 100 mm[Hg] 100 mm[Hg] [facility] ([facility]) left arm Diastolic blood pressure 76 mm[Hg] 76 mm[Hg] [facility] ([facility]) left arm Body height 61.5 [in_i] 61.5 [in_i] [facility] ([facility]) 5'1.50" Body weight 123.25 [lb_av] 123.25 [lb_av] [facility] ([facility]) Body temperature 98.3 [degF] 98.3 [degF] [facility] ([facility]) Oxygen saturation in Arterial blood by Pulse oximetry 98 % 98 % [facility] ([facility]) Body mass index (BMI) [Ratio] 22.9 kg/m2 22.9 k g/m2 [facility] ([facility]) Respiratory rate 15 /min 15 /min [facility] ( [facility]) Heart rate 66 /min 66 /min [facility]
[2021-06-29] MEDS ORDERED: BOOSTRIX/ADACEL VACCINE (DIPHTH/PERTUSS/ACELL/TETANUS) 0.5ML SYR IM ONE (16:45)
[2021-06-29] MEDS ORDERED: ISOVUE-370 76% 100ML VIAL As Ordered ONE (16:47)
[2021-06-29 17:27] LABS: BASO % 0.4 % (0.0-1.0); EOS % 0.4 % (0.0-3.0); HEMATOCRIT 41.5 % (36.0-47.0); HEMOGLOBIN 13.4 g/dl (12.0-15.5); LYMPH # 1.9 10^3/uL (1.5-5.0); LYMPH % 34.9 % (24.0-44.0); MEAN CORPUSCULAR HEMOGLOBIN 29.9 pg (27.0-33.0); MEAN CORPUSCULAR HGB CONC 32.3 g/dl (32.0-36.5); MEAN CORPUSCULAR VOLUME 92.6 fl (80.0-96.0); MONO # 0.5 10^3/uL (0.0-0.8); MONO % 9.6 % (2.0-8.0); NEUTROPHILS % 54.1 % (36.0-66.0); PLATELET COUNT, AUTOMATED 149 10^3/uL (150-450); RED BLOOD COUNT 4.48 10^6/uL (4.00-5.40); WHITE BLOOD COUNT 5.4 10^3/uL (4.0-10.0)
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
[2021-06-29 17:59] LABS: ALT/SGPT 11 U/L (12-78); BILIRUBIN,DIRECT 0.2 MG/DL (0.0-0.2); BILIRUBIN,TOTAL 0.6 MG/DL (0.2-1.0); BLOOD UREA NITROGEN 7 MG/DL (7-18); CALCIUM LEVEL 7.7 MG/DL (8.5-10.1); CARBON DIOXIDE LEVEL 19 MEQ/L (21-32); CHLORIDE LEVEL 106 MEQ/L (98-107); CK-MB VALUE MASS < 1.0 NG/ML (<3.6); CPK CREATINE PHOSPHOKINASE 104 U/L (26-192); CREATININE FOR GFR 0.41 MG/DL (0.55-1.30); GLOMERULAR FILTRATION RATE > 60.0 (>58); GLUCOSE, FASTING 76 MG/DL (70-100); MB/CK RELATIVE INDEX 0.96 (< OR =4); POTASSIUM SERUM 4.1 MEQ/L (3.5-5.1); SODIUM LEVEL 138 MEQ/L (136-145); TOTAL PROTEIN 3.9 GM/DL (6.4-8.2); TROPONIN I < 0.02 NG/ML (< 0.10)
[2021-06-29] MEDS ORDERED: MORPHINE 4 MG/ML 1ML VIAL/SYRINGE (J2270) IV ONE ×2 (18:10→19:00)
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
--- OUTSIDE RECORDS SUMMARY | 2021-06-29 18:18 | CCD ---
Author Author [facility] Organization [facility] Address Unknown Phone Unavailable Care Team Providers Care Civilian Jail Officer Name Role Phone Mary Bowles MD Unavailable [...] Unavailable SMYTH, P REMEDIOS MD Unavailable Unavailable SMYHT, P REMEDIOS MD Unavailable Unavailable SMYTH, P [...] Unavailable SMYTH, P REMEDIOS MD Unavailable Unavailable OLESYA SHAHA OBIEE CONSULTANT-C Unavailable Unavailable PABLO, OLESYA JW OBIEE CONSULTANT-C Unavailable Unavailable PABLO, OLESYA JW OBIEE CONSULTANT-C Unavailable Unavailable PABLO, OLESYA JW OBIEE CONSULTANT-C Unavailable Unavailable PABLO, OLESYA JW OBIEE CONSULTANT-C Unavailable Unavailable PABLO, OLESYA JW OBIEE CONSULTANT-C Unavailable Unavailable PABLO, OLESYA JW OBIEE CONSULTANT-C Unavailable Unavailable PABLO, OLESYA JW OBIEE CONSULTANT-C Unavailable Unavailable PABLO, OLESYA JW OBIEE CONSULTANT-C Unavailable Unavailable PABLO, OLESYA JW OBIEE CONSULTANT-C Unavailable Unavailable PABLO, OLESYA JW OBIEE CONSULTANT-C Unavailable Unavailable PABLO, OLESYA JW OBIEE CONSULTANT-C Unavailable Unavailable PABLO, OLESYA JW OBIEE CONSULTANT-C Unavailable Unavailable PABLO, OLESYA JW OBIEE CONSULTANT-C Unavailable Unavailable PABLO, OLESYA JW OBIEE CONSULTANT-C Unavailable Unavailable PABLO, OLESYA JW OBIEE CONSULTANT-C Unavailable Unavailable PABLO, OLESYA JW OBIEE CONSULTANT-C Unavailable Unavailable Mercedez WILLIS MD Unavailable Unavailable [...] ALEJANDRA MD Unavailable Unavailable Christos, Alfredo Unavailable [phone] Christos, Alfredo Unavailable [phone] Christos, Alfredo Unavailable [phone] Christos, Alfredo Unavailable [phone] Christos, Alfredo Unavailable [phone] Christos, Alfredo Unavailable [phone] Christos, Alfredo Unavailable [phone] Christos, Alfredo Unavailable [phone] Christos, Alfredo Unavailable [phone] Christos, Alfredo Unavailable [phone] Christos, Alfredo Unavailable [phone] Christos, Alfredo Unavailable [phone] Gilberto DIEHL MD Unavailable +011 Gilberto DIEHL MD Unavailable +011 Gilberto DIEHL MD Unavailable +011 Gilberto DIEHL MD Unavailable +011 Gilberto DIEHL MD Unavailable +011 Gilberto DIEHL MD Unavailable +011 Gilberto DIEHL MD Unavailable +011 Gilberto DIEHL MD Unavailable +011 Gilberto DIEHL MD Unavailable +011 Gilberto DIEHL MD Unavailable +011 Gilberto DIEHL Unavailable +011 Gilberto DIEHL MD Unavailable +011 Gilberto DIEHL MD Unavailable +011 Gilberto DIEHL Unavailable +011 Gilberto DIEHL MD Unavailable +011 [...] is protected by Article 27-F of the [facility] Public Health law. If you continue you may have access to information: Regarding HIV / AIDS; Provided by facilities licensed or operated by the [facility] Office of Mental Health; or Provided by the [facility] Office for People With Developmental Disabilities. If such information is present, then the following [facility] mandated warning applies: This information has been [...] law may result in a fine or care home sentence or both. A general authorization for the release of medical or other information is NOT sufficient authorization for further disc losure. Family History Family Member Name Family Member Gender Family Member Status Date o f Status Description Data Source(s) Unknown Unknown Problem [facility] ([facility]) Unknown Female Problem [facility] ([facility]) Unknown Male Problem [facility] ([facility] Encounters Encounter Providers Location Date Indications Data Source(s ) Outpatient Attender: Umesh Bowles MD Main Office 05/11/2021 04:00:00 PM EDT [facility] ([facility]) Outpatient Attender: Umesh Bowles MD Main Office 04/25/2021 02:30:00 PM EDT [facility] ([facility]) Outpatient Attender: JW SHAH OBIEE CONSULTANT-C [place] 03/17/2021 03:15:00 PM EDT [facility] ([facility] Outpatient Attender: JW SHAH OBIEE CONSULTANT-C [place] 02/01/2021 08:15:00 AM EDT [facility] ([facility], ) Outpatient Attender: Alfredo SherReferrer: OTF Vega 12/21/2020 08:00:00 AM [facility] Outpatient Attender: OTF Cedeño reena: AUGUSTUS DIEHL MDReferrer: OTF WILLIS MD 12/14/2020 01:00:00 PM T - 12/14/2020 01:00:00 PM [facility] Outpatient 05/30/2020 12:00:00 AM [facility] Outpatient 05/27/2020 12:00:00 AM [facility] Outpatient 05/12/2020 12:00:00 AM [facility] Outpatient 05/10/2020 12:00:00 AM [facility] Outpatient Attender: SAUL ALEJANDRA MDReferrer: OTF FOX MD 03/14/2020 04:41:00 PM EDT - 03/14/2020 04:41:00 PM [facility] Outpatient Attender: AUGUSTUS Lei tender: AUGUSTUS JOSÉReferrer: OTF WILLIS MD 12/11/2019 02:30:00 PM EDT - 12/11/2019 02:30:00 PM [facility] Outpatient Attender: OTF KIRKeferrer: OTF WILLIS MD 10/17/2018 09:00:00 AM EST - 10/17/2018 09:00:00 AM [facility] Outpatient Attender: OTF WILLIS MD 2018 02:00:00 PM EST - 10/10/2018 02:00:00 PM [facility] Outpatient Attender: REMEDIOS SMYTH MDReferrer: OTF WILLIS MD 10/01/2018 01:00:00 PM EST - 10/01/2018 01:00:00 PM [facility] Medications Medication Brand Name Start Date Product [...] type / Coverage type Policy ID Covered republican ID Covered republican's relationship to haque Policy Haque Plan Information ELIUD Crenshaw [id number] Spouse [id number] [place] [employer] [id number] HU2 [id number] [place] WPS [id number] SPO [id number] [place] (2018) Commercial [id number] Family Dependent [id number] [place] WPS [id number] SPO [id number] [place] [employer] [id number] HU2 [id number] [place] WPS [id number] SPO [id number] U [id number] Self [id number] U [id number] Self [id number] U [id number] Self [id number] FOR LIFE U [id number] Self [id number] PGBA [place] [id number] [id number] Region 1 Prime Commercial [id number] Family Dependent [id number] / Commercial [id number] Family Dependent [id number] [facility] Health Maintenance Organization (O) [id number] Family Dependent [id number] / Commercial [id number] Family Dependent [id number] [facility] Health Maintenance Organization (O) [id number] Family Dependent PGBA [place] P [id number] S [id number] [facility] O [id number] U [id number] [facility] [place] [id number] SPO [id number] N REGIONAL CLAIMS [facility] [id number] 01 [id number] [place] WPS [id number] SPO [id number] [facility] [id number] SPO [id number] [facility]NA [facility] REG O [id number] P [id number] [facility] Health Maintenance [facility] ([facility] 4 [id number] Family Dependent [id number] [facility] [place] Health Maintenance Organization ([facility]) 4 [id number] Family Dependent [id number] [facility] Health Maintenance Organization ([facility]) 4 [id number] Family Dependent [id number] HUMANA [id number] SPO [id number] / Commercial [id number] Family Dependent [id number] [facility] Maintenance [facility] ([facility]) 4 [id number] Family Dependent [id number] [facility] [id number] [facility] [id number] Problems, Conditions, and Diagnoses Code Display Name Description Problem Type Effective Dates Data Source(s) K59.00 Constipation, unspecified CONSTIPATION, UNSPECIFIED Di agnosis 12/21/2020 08:00:00 AM [facility] R10.9 Unspecified abdominal pain UNSPECIFIED ABDOMINAL PAIN Diagnosis 12/21/2020 08:00:00 AM [facility] Z12.31 Encounter for screening mammogram for ma lignant neoplasm of breast ENCNTR SCREEN MAMMOGRAM FOR MALIGNANT NEOPLASM OF BREAST Diagnosis 12/2020 01:00:00 PM [facility] [id number] Abdominal pain Abdominal pain Problem 04/25/2021 12:00: 00 AM [facility] ([facility]) Surgeries/Procedures Procedure Description Date Indications Data Source(s) OFFICE OUTPATIENT VISIT 15 MINUTES 05/11/2021 12:00:00 AM EDT [facility] ([facility]) OFFICE OUTPATIENT VISIT 25 MINUTES 04/26/2021 12:00:00 AM EDT [facility] ([facility]) OFFICE OUTPATIENT VISIT 15 MINUTES 04/25/2021 12:00:00 AM EDT [facility] ([facility]) OFFICE OUTPATIENT VISIT 15 MINUTES 03/17/2021 12:00:00 AM EDT [facility] ([facility], ) OFFICE OUTPATIENT NEW 30 MINUTES 02/01/2021 12:00:00 A M EDT [facility] ([facility], ) Results ID Date Data Source [id number] 12/21/2020 08:32:00 AM EDT [facility] [...] rce(s) Supporting Document(s) ID Date Data Source [id number] 12/15/2020 10:00:00 AM EDT Douglas Wang l [...] analyzed through the latest version of the resmio computer aided diagnosis system. The patient states [...] completed Patient is a former smoker [facility] ([facility]) Smoking 03/17/2021 12:00:00 AM EDT Patient is a former smoker completed Patient is a former smoker [facility] ([facility], ) Vital Signs ID Date Data Source UNK Name Value Range Interpretation Code Description Data Source(s) Diastolic blood pressure 73 mm[Hg] 73 mm[Hg] [facility] ([facility]) Systolic blood pressure 124 mm[Hg] 124 mm[Hg] M EDENT ([facility]) Body height 62 [in_i] 62 [in_i] [facility]) 5'2" Body weight 136.00 [lb_av] 136.00 [lb_av] MED[facility] T ([facility]) Heart rate 66 /min 66 /min [facility] ([facility]) Body mass index (BMI) [Ratio] 24.9 kg/m2 24.9 k g/m2 [facility] ([facility]) Body weight 61.690 kg 61.690 kg [facility] ([facility]) Body temperature 97.5 [degF] 97.5 [degF] [facility] ([facility]) Respiratory rate 16 /min 16 /min [facility] ( [facility]) Systolic blood pressure 104 mm[Hg] 104 mm[Hg] M EDENT ([facility]) left arm Diastolic blood pressure 68 mm[Hg] 68 mm[Hg] [facility] ([facility]) left arm Body height 61.5 [in_i] 61.5 [in_i] [facility] ([facility]) 5'1.50" Heart rate 67 /min 67 /min [facility] ([facility] Body temperature 97.0 [degF] 97.0 [degF] [facility] ([facility]) Body mass index (BMI) [Ratio] 25.1 kg/m2 25.1 k g/m2 [facility] ([facility]) Body weight 135.00 [lb_av] 135.00 [lb_av] MED[facility] T ([facility]) Oxygen saturation in Arterial blood by Pulse oximetry 98 % 98 % [facility] ([facility]) Body height 62 [in_i] 62 [in_i] [facility] ([facility]) 5'2" Heart rate 76 /min 76 /min [facility] ([facility]) Diastolic blood pressure 80 mm[Hg] 80 mm[Hg] [facility] ([facility]) Body mass index (BMI) [Ratio] 24.9 kg/m2 24.9 k g/m2 [facility] ([facility]) Body weight 61.690 kg 61.690 kg [facility] ([facility]) Body temperature 97.4 [degF] 97.4 [degF] [facility] ([facility]) Body weight 136.00 [lb_av] 136.00 [lb_av] MEDEN T ([facility]) Systolic blood pressure 128 mm[Hg] 128 mm[Hg] M EDENT ([facility]) Systolic blood pressure 140 mm[Hg] 140 mm[facility]Hg] [facility] Diastolic blood pressure 80 mm[Hg] 80 mm[Hg] [facility] ([facility]) Heart rate 68 /min 68 /min [facility] ([facility]) Oxygen saturation in Arterial blood by Pulse oximetry 98 % 98 % [facility] ([facility]) Body height 62 [in_i] 62 [in_i] [facility] ([facility] 5'2" Body weight 135.25 [lb_av] 135.25 [lb_av] [facility] Body mass index (BMI) [Ratio] 24.7 kg/m2 24.7 k g/m2 [facility] ([facility]) [place] body weight 110 [lb_av] 110 [lb_av] [facility] T ([facility]) Body weight 61.349 kg 61.349 kg [facility] ([facility]) Body surface area Derived from formula 1.62 m2 1.62 m2 [facility] ([facility]) Body height 62 [in_i] 62 [in_i] [facility] ([facility]) 5'2" Body weight 132.38 [lb_av] 132.38 [lb_av] [facility] T ([facility]) Body mass index (BMI) [Ratio] 24.2 kg/m2 24.2 k g/m2 [facility] ([facility]) [place] body weight 110 [lb_av] 110 [lb_av] [facility] T ([facility]) Body weight 60.045 kg 60.045 kg [facility] ([facility]) Body surface area Derived from formula 1.60 m2 1.60 m2 [facility] ([facility]) Oxygen saturation in Arterial blood by Pulse oximetry 99 % 99 % [facility] ([facility]) Diastolic blood pressure 80 mm[Hg] 80 mm[Hg] [facility] Systolic blood pressure 120 mm[Hg] 120 mm[Hg] M EDENT ([facility]) Heart rate 67 /min 67 /min [facility] ([facility]) Oxygen saturation in Arterial blood by Pulse oximetry 99 % 99 % [facility] ([facility]) Body height 62 [in_i] 62 [in_i] [facility] 5'2" Body weight 132.38 [lb_av] 132.38 [lb_av] [facility] T ([facility]) Body mass index (BMI) [Ratio] 24.2 kg/m2 24.2 k g/m2 [facility] ([facility]) [place] body weight 110 [lb_av] 110 [lb_av] MED[facility] T ([facility]) Body weight 60.045 kg 60.045 kg [facility] ([facility]) Body surface area Derived from formula 1.60 m2 1.60 m2 [facility] ([facility]) Systolic blood pressure 100 mm[Hg] 100 mm[Hg] [...] 98.3 [degF] [facility] ([facility]) Heart rate 66 /min 66 /min [facility] ([facility] Oxygen saturation in Arterial blood by Pulse oximetry 98 % 98 % [facility] ([facility]) Body mass index (BMI) [Ratio] 22.9 kg/m2 22.9 k g/m2 [facility] ([facility]) Respiratory rate 15 /min 15 /min [facility] ( [facility])
[2021-06-29] MEDS ORDERED: DERMABOND TOPICAL SKIN ADHESIVE TOP ONE (18:30)
--- NOTE | 2021-06-29 18:35 | REP ---
INDICATION: trauma COMPARISON: None. TECHNIQUE: AP, lateral, bilateral oblique views left hand. FINDINGS: The osseous structures and joint spaces are intact and normal. There is no evidence for acute fracture or dislocation. Surrounding soft tissues are unremarkable. No subcutaneous emphysema or radiodense foreign body. IMPRESSION: . No acute fracture or dislocation. <Electronically signed by Junaid Velázquez > 06/29/21 [id number]
--- NOTE | 2021-06-29 18:35 | REP ---
INDICATION: trauma COMPARISON: None. TECHNIQUE: AP and lateral views of the right tibia/fibula. FINDINGS: Comminuted fractures involving the proximal fibular shaft and comminuted intra-articular oblique fracture involving the distal tibial metadiaphysis. IMPRESSION: Comminuted fractures of the proximal fibula and distal tibia.. <Electronically signed by Junaid Velázquez > 06/29/21 [id number]
[2021-06-29] MEDS ORDERED: ONDANSETRON 4MG/2ML VIAL IV ONE (19:05)
[2021-06-29 20:15] VITALS: BP 95/56
[2021-06-29 20:23] LABS: RSV AMPLIFICATION NEGATIVE (NEGATIVE)
--- NOTE | 2021-07-01 08:00 | ECGEPIP ---
- ED Test Date: 2021-06-29 Pat Name: ALETHA WRIGHT Department: Room: - Gender: Female Label Drier: LR : 1970 Requested By: SPIKE Macias Order Number: [id number] Reading MD: Lisa Molina Measurements Intervals [place] Rate: 98 P: 75 [place]: 108 QRS: -53 QRSD: 78 T: 34 QT: 374 QTc: 477 Interpretive Statements Sinus rhythm with short [place] Left axis deviation Low voltage QRS Inferior infarct , age undetermined Cannot rule out Anterior infarct , age undetermined NSTTW abnormalities no prior Electronically Signed on 07-01-2021 8:00:09 EST by Lisa Molina
== END 2021-06-29 20:16 | disposition short-term general hospital (02) ==
LOC: M ED 16:38
DX: S82.454A Nondisplaced comminuted fracture of shaft of right fibula, initial encounter for closed fracture (principal); S61.217A Laceration without foreign body of left little finger without damage to nail, initial encounter; S82.254A Nondisplaced comminuted fracture of shaft of right tibia, initial encounter for closed fracture; V49.00XA Driver injured in collision with unspecified motor vehicles in nontraffic accident, initial encounter; M51.26 Other intervertebral disc displacement, lumbar region; Z88.1 Allergy status to other antibiotic agents; Z88.8 Allergy status to other drugs, medicaments and biological substances; Z91.013 Allergy to seafood; Z91.040 Latex allergy status; Y92.9 Unspecified place or not applicable; Y93.9 Activity, unspecified; Y99.9 Unspecified external cause status
CPT/HCPCS: 12001; 70450; 71260; 72125; 72128; 72131; 73130; 73590; 74177; 80047; 80048; 80076; 82550; 82553; 84484; 85025; 86850; 86900; 86901; 87631; 90471; 90715; 93005; 93041; 94760; 96361; 96374; 99285; J2270; Q9967

== ENCOUNTER → 2022-05-24 | Outpatient (CLI) | payer OTHER | LOC: M WHC 07:40 | PROVIDERS: ATTEND Family Medicine | DX: Z12.31 Encounter for screening mammogram for malignant neoplasm of breast (principal) ==